=== PATIENT | male | born 1945 | race Caucasian/White ===

== ENCOUNTER 2019-11-02 12:22 | Outpatient (CLI) | payer MEDICARE ==
[2019-11-02] MEDS ORDERED: LACTATED RINGERS 1,000 ML IV SCH (12:52)
[2019-11-02 13:47] LABS: BASOPHILS # (AUTO) 0.06 x10^3/uL (0-0.1); BASOPHILS % (AUTO) 1 % (0-1); EOSINOPHILS # (AUTO) 0.07 x10^3/uL (0-0.4); EOSINOPHILS % (AUTO) 1 % (1-7); LYMPHOCYTES # (AUTO) 2.12 x10^3/uL (1-3.4); LYMPHOCYTES % (AUTO) 26 % (22-44); MD NO; MEAN CORPUSCULAR HEMOGLOBIN 31.9 pg (27.5-34.5); MEAN CORPUSCULAR HGB CONC 33.5 g/dL (33.2-36.2); MEAN CORPUSCULAR VOLUME 95.5 fL (81-97); MEAN PLATELET VOLUME 8.1 fL (7.4-10.4); MONOCYTES % (AUTO) 10 % (2-9); NEUTROPHILS # (AUTO) 5.01 x10^3/uL (1.8-6.8); NEUTROPHILS % (AUTO) 62 % (42-75); PLATELET COUNT 273 x10^3/uL (130-400); RED BLOOD COUNT 4.46 x10^6/uL (4.38-5.82); RED CELL DISTRIBUTION WIDTH 13.7 % (9.4-14.8)
[2019-11-02] MEDS ORDERED: GABA300T3 PO (13:49)
[2019-11-02] MEDS ORDERED: B COMPLEX (13:49)
[2019-11-02] MEDS ORDERED: TRAM50TA2 PO (13:49)
[2019-11-02] MEDS ORDERED: TIZA4TAB2 PO (13:49)
[2019-11-02] MEDS ORDERED: MELO7.5T31 PO (13:49)
[2019-11-02] MEDS ORDERED: HYDR-36 PO (13:49)
[2019-11-02] MEDS ORDERED: LISI-170 PO (13:49)
[2019-11-02 13:51] LABS: ANION GAP 7 mmol/L (5-15); CALCIUM 8.8 mg/dL (8.5-10.1); CHLORIDE 107 mmol/L (98-107)
[2019-11-02] MEDS ORDERED: PLEASE ENTER HEIGHT AND WEIGHT MC SCH (14:00)
[2019-11-02 14:10] LABS: INTERNATIONAL NORMALIZED RATIO 0.97 (0.93-1.1); PROTHROMBIN TIME 10.3 Seconds (9.6-11.5)
[2019-11-02 14:30] LABS: MICROSCOPIC NOT IND
[2019-11-02 16:11] LABS: CULTURE INDICATED? NO
[2019-11-14] MEDS ORDERED: OXYC-307 PO (09:10)
[2019-11-14] MEDS ORDERED: BISA10SU54 PR (09:13)
[2019-11-14] MEDS ORDERED: LABE5VIA13 IV (09:17)
== END 2019-11-02 23:59 | disposition home or self-care (01) ==
LOC: STAR 12:22
PROVIDERS: ATTEND Neurological Surgery
DX: Z01.810 Encounter for preprocedural cardiovascular examination (principal); Z01.811 Encounter for preprocedural respiratory examination; Z01.812 Encounter for preprocedural laboratory examination; M41.86 Other forms of scoliosis, lumbar region; M43.17 Spondylolisthesis, lumbosacral region; M47.26 Other spondylosis with radiculopathy, lumbar region; M47.814 Spondylosis without myelopathy or radiculopathy, thoracic region; R79.1 Abnormal coagulation profile; R94.31 Abnormal electrocardiogram [ECG] [EKG]; R82.90 Unspecified abnormal findings in urine
CPT/HCPCS: 36415; 71046; 72114; 80048; 81003; 85025; 85610; 85730; 93005